=== PATIENT | male | born 2000 | race Caucasian/White ===

== ENCOUNTER 2023-05-17 14:16 | Emergency (ER) | payer SELFPAY ==
[~2023-05-17] VITALS: Ht 175.3 cm; Wt 70.0 kg
[2023-05-17 14:19] VITALS: BP 134/86; PULSE 77; RESP 18; TEMP 98.3; O2SAT 99
[2023-05-17] MEDS ORDERED: LIDOcaine 1% (10mg/ml)w/preservative inj. 20ml MDV SQ ONE (16:25)
== END 2023-05-17 17:42 | disposition home or self-care (01) ==
LOC: ER 14:17
DX: S61.012A Laceration without foreign body of left thumb without damage to nail, initial encounter (principal); W22.8XXA Striking against or struck by other objects, initial encounter; Y93.89 Activity, other specified; Y92.89 Other specified places as the place of occurrence of the external cause; Y99.8 Other external cause status
CPT/HCPCS: 12001; 99282; A6258